=== PATIENT | female | born 1965 | race Caucasian/White ===

== ENCOUNTER 2017-10-07 08:13 | Day surgery (SDC) | payer OTHER ==
[~2017-10-07] VITALS: Ht 190.5 cm; Wt 64.2 kg
[~2017-10-07 08:13] MED LIST: CHOL10002 PO; ESTNOR PO; FOLI1 PO; LIOT25 PO; MELO7.5 PO; METTREX2.5 PO; Omeprazole20 M1
== END 2017-10-07 11:00 | disposition home or self-care (01) ==
LOC: ORSCSDS 08:13
PROVIDERS: Internal Medicine Gastroenterology
PROC: 0DB68ZX Excision of Stomach, Via Natural or Artificial Opening Endoscopic, Diagnostic (ICD-10-PCS; principal; 2017-10-07 09:30)
PROC: 0DB98ZX Excision of Duodenum, Via Natural or Artificial Opening Endoscopic, Diagnostic (ICD-10-PCS; principal; 2017-10-07 09:30)
DX: K21.9 Gastro-esophageal reflux disease without esophagitis (principal); K31.7 Polyp of stomach and duodenum; K44.9 Diaphragmatic hernia without obstruction or gangrene; E03.9 Hypothyroidism, unspecified; Z79.899 Other long term (current) drug therapy
CPT/HCPCS: 88305; J2405; J3010

== ENCOUNTER 2019-01-03 07:18 | Day surgery (SDC) | payer OTHER ==
[~2019-01-03] VITALS: Ht 160 cm; Wt 65.2 kg
[~2019-01-03 07:18] MED LIST changes: +DOXY100T53 PO; +Estradiol-Nore1 EACH PO; +LEVSOD50 PO; +Mobic15 MG PO; +OMEPRAZOLE20 MG PO
== END 2019-01-03 09:19 | disposition home or self-care (01) ==
LOC: ORSCSDS 07:18
PROVIDERS: Internal Medicine Gastroenterology
PROC: 0DB68ZX Excision of Stomach, Via Natural or Artificial Opening Endoscopic, Diagnostic (ICD-10-PCS; principal; 2019-01-03 08:30)
DX: K21.9 Gastro-esophageal reflux disease without esophagitis (principal); K31.7 Polyp of stomach and duodenum; K44.9 Diaphragmatic hernia without obstruction or gangrene; E03.9 Hypothyroidism, unspecified; E78.5 Hyperlipidemia, unspecified; Z79.899 Other long term (current) drug therapy
CPT/HCPCS: 88305; J0330; J0461; J2405; J2704; J7120

== ENCOUNTER 2020-07-18 08:01 | Day surgery (SDC) | payer OTHER ==
[~2020-07-18] VITALS: Ht 160 cm; Wt 63.0 kg
[2020-07-18] MEDS ORDERED: ESTRADIOL1 M1 PO (08:25)
[2020-07-18] MEDS ORDERED: PROG100 PO (08:25)
[2020-07-18] MEDS ORDERED: Vitamin B-Comp1 EACH PO (08:26)
[2020-07-18] MEDS ORDERED: DHEA PO (08:26)
[2020-07-18] MEDS ORDERED: VITAMIN D31000 UNI1 PO (08:26)
== END 2020-07-18 09:48 | disposition home or self-care (01) ==
LOC: ORSCSDS 08:01
PROVIDERS: Internal Medicine Gastroenterology
PROC: 0DB68ZX Excision of Stomach, Via Natural or Artificial Opening Endoscopic, Diagnostic (ICD-10-PCS; principal; 2020-07-18 09:15)
DX: K21.9 Gastro-esophageal reflux disease without esophagitis (principal); R13.10 Dysphagia, unspecified; E78.5 Hyperlipidemia, unspecified; Z79.899 Other long term (current) drug therapy
CPT/HCPCS: 88305; 88342; J2704; J7120

== ENCOUNTER → 2021-11-27 | Outpatient (CLI) | payer OTHER ==
[~2021-11-27] MED LIST changes: +DHEA PO; +ESTRADIOL1 M1 PO; +PROG100 PO; +VITAMIN D31000 UNI1 PO; +Vitamin B-Comp1 EACH PO
== END | disposition home or self-care (01) ==
LOC: LAB 08:15 → LAB SHORT 08:15
DX: G44.89 Other headache syndrome (principal)
CPT/HCPCS: 85651

== ENCOUNTER → 2022-01-16 | Outpatient (CLI) | payer OTHER | END | disposition home or self-care (01) | LOC: LAB 07:55 → LAB SHORT 07:55 | DX: G50.1 Atypical facial pain (principal); E55.9 Vitamin D deficiency, unspecified; H93.11 Tinnitus, right ear; R51.9 Headache, unspecified; I49.8 Other specified cardiac arrhythmias; R53.83 Other fatigue | CPT/HCPCS: 85651 ==

== ENCOUNTER → 2024-07-08 | Outpatient (CLI) | payer BC ==
[~2024-07-08] MED LIST changes: +DOCU100 PO; +IBUP400 PO; +OMEP20ER PO; +OTEZLA30 MG PO; +PROM25 PO; +Percocet 5-3251 EACH PO; +SIME80CH PO
== END | disposition home or self-care (01) ==
LOC: LAB 11:11 → LAB SHORT 11:11
DX: R30.0 Dysuria (principal); R35.0 Frequency of micturition
CPT/HCPCS: 87077; 87086; 87186

== ENCOUNTER 2025-03-27 13:01 | Day surgery (SDC) | payer BC ==
[~2025-03-27] VITALS: Ht 160 cm; Wt 60.3 kg
[~2025-03-27 13:01] MED LIST changes: +CYTOMEL25 MCG PO; +MELO7.5; +TOPI50 PO
[2025-03-27] MEDS ORDERED: METHOTREXATE2.510 (13:12)
[2025-03-27] MEDS ORDERED: TOPI50 (13:13)
[2025-03-27] MEDS ORDERED: EUTHYROX100 MC1 (13:13)
[2025-03-27] MEDS ORDERED: LIOT5 (13:13)
[2025-03-27] MEDS ORDERED: ESTRADIOL (TWI1 EAC1 (13:17)
[2025-03-27] MEDS ORDERED: ENBREL SUR50 MG/1 M1 (13:18)
[2025-03-27] MEDS ORDERED: MAGNESIUM250 M1 (13:18)
[2025-03-27] MEDS ORDERED: FLUT.05NI (13:19)
[2025-03-27] MEDS ORDERED: ALPR.5 (13:21)
[2025-03-27] MEDS ORDERED: TESTOSTERONE CREAM TOP (13:21)
[2025-03-27] MEDS ORDERED: Inderal 20 mg T20 MG (13:22)
[2025-03-27] MEDS ORDERED: Glycopyrrolate 0.2 MG/ML 1MLVIAL ONE (14:13)
[2025-03-27 14:38] VITALS: BP 103/62
== END 2025-03-27 14:38 | disposition home or self-care (01) ==
LOC: ORSCSDS 13:01
PROVIDERS: Specialist
PROC: 0DJD8ZZ Inspection of Lower Intestinal Tract, Via Natural or Artificial Opening Endoscopic (ICD-10-PCS; principal; 2025-03-27 14:15)
DX: Z12.11 Encounter for screening for malignant neoplasm of colon (principal); K64.8 Other hemorrhoids; K57.30 Diverticulosis of large intestine without perforation or abscess without bleeding; E78.5 Hyperlipidemia, unspecified; L40.50 Arthropathic psoriasis, unspecified; Z79.899 Other long term (current) drug therapy
CPT/HCPCS: J2704; J7120